=== PATIENT | female | born 1985 ===

== ENCOUNTER 2021-09-05 09:27 | Day surgery (SDC) | payer OTHER | END 2021-09-05 09:50 | disposition home or self-care (01) | LOC: AMB-ENDOS 09:27 | PROVIDERS: ATTEND Surgery | DX: K29.70 Gastritis, unspecified, without bleeding (principal); K21.9 Gastro-esophageal reflux disease without esophagitis; I10 Essential (primary) hypertension; E66.01 Morbid (severe) obesity due to excess calories ==